=== PATIENT | male | born 1970 | race African-American/Black ===

== ENCOUNTER 2021-04-05 10:47 | Emergency (ER) | payer OTHER ==
[~2021-04-05] VITALS: Ht 175.3 cm; Wt 91.0 kg
--- NOTE | 2021-04-05 11:07 | PHYS DOC ---
Adult General HPI HPI Patient is a 51-year-old male presenting for known Covid positive status and symptoms. Reports he has history of high blood pressure only for which he takes medicine. Is otherwise been at baseline health up until 9 days ago when he started developing URI symptoms. He was tested and found out he was Covid +8 days ago. He has been at home quarantine providing self-care to self but reports over past 48 hours increase worsened dyspnea and feelings of weakness and malaise. Reports ongoing symptoms and ultimately difficulty in breathing prompted him to transport himself to our facility for evaluation. Review of Systems Review of Systems Fourteen body systems of review of systems have been reviewed. See HPI for pertinent positives and negative responses, other barbosa all other systems are negative, non-pertinent or non-contributory Physical Exam Physical Exam Constitutional: Well developed, well nourished, no acute distress, non-toxic appearance. HENT: Normocephalic, atraumatic, bilateral external ears normal, oropharynx moist, no oral exudates, nose normal. Eyes: PERRLA, EOMI, conjunctiva normal, no discharge. Neck: Normal range of motion, no tenderness, supple, no stridor. Cardiovascular: Heart rate tachycardic, sinus rhythm, no murmurs rubs or gallops Lungs & Thorax: Hypoxic on arrival in the 70s on room air with mild increased work of breathing, scant rhonchi present bilaterally otherwise grossly unremarkable to auscultation Abdomen: Bowel sounds normal, soft, no tenderness, no masses, no pulsatile m asses. Nonsurgical abdomen, no peritoneal signs Skin: Warm, dry, no erythema, no rash. Back: No tenderness, no CVA tenderness. Extremities: No tenderness, no cyanosis, no clubbing, ROM intact, no edema. Neurologic: Alert and oriented X 3, grossly normal motor & sensory function, no focal deficits noted. Psychologic: Affect normal, judgement normal, mood normal. Current Patient Data Vital Signs Vital Signs Date Time Temp Pulse Resp B/P (MAP) Pulse Ox O2 Delivery O2 Flow Rate FiO2 04/05/21 11:15 99.8 106 34 129/73 (91) 73 Room Air 04/05/21 11:18 6.0 Vital Signs Date Time Temp Pulse Resp B/P (MAP) Pulse Ox O2 Delivery O2 Flow Rate FiO2 04/05/21 17:17 99.0 82 34 120/72 (88) 96 Nasal Cannula 6.0 Lab Results Laboratory Tests Test 04/05/21 11:05 04/05/21 11:16 White Blood Count 6.6 x10^3/uL Red Blood Count 5.13 x10^6/uL Hemoglobin 14.3 g/dL Hematocrit 44.4 % Mean Corpuscular Volume 87 fL Mean Corpuscular Hemoglobin 28 pg Mean Corpuscular Hemoglobin Concent 32 g/dL Red Cell Distribution Width 13.8 % Platelet Count 207 x10^3/uL Neutrophils (%) (Auto) 75 % Lymphocytes (%) (Auto) 12 % Monocytes (%) (Auto) 12 % Eosinophils (%) (Auto) 0 % Basophils (%) (Auto) 0 % Neutrophils # (Auto) 5.0 x10^3uL Lymphocytes # (Auto) 0.8 x10^3/uL Monocytes # (Auto) 0.8 x10^3/uL Eosinophils # (Auto) 0.0 x10^3/uL Basophils # (Auto) 0.0 x10^3/uL Sodium Level 140 mmol/L Potassium Level 4.0 mmol/L Chloride Level 102 mmol/L Carbon Dioxide Level 31 mmol/L Anion Gap 7 Blood Urea Nitrogen 33 mg/dL Creatinine 2.1 mg/dL Estimated GFR (Cockcroft-Gault) 40.8 BUN/Creatinine Ratio 16 Glucose Level 102 mg/dL Lactic Acid Level 1.2 mmol/L Calcium Level 8.7 mg/dL Total Bilirubin 0.6 mg/dL Aspartate Amino Transf (AST/SGOT) 39 U/L Alanine Aminotransferase (ALT/SGPT) 27 U/L Alkaline Phosphatase 51 U/L Troponin I Quantitative < 0.017 ng/mL Total Protein 7.1 g/dL Albumin 3.4 g/dL Albumin/Globulin Ratio 0.9 Bedside Venous pH 7.43 Bedside Venous pCO2 27 mmHg Bedside Venous pO2 51 mmHg Venous Blood HCO3 35 mmol/L POC Venous O2 Saturation (Hector) 48 % Bedside FiO2 44 Current Medications Medications (Trade) Dose Ordered Sig/Briseida Route PRN Reason Start Time Stop Time Status Last Admin Dose Admin Iohexol (Omnipaque 350 Mg/ml) 100 ml 1X ONCE IV 04/05/21 11:15 04/05/21 11:16 DC 04/05/21 11:25 Aspirin (Aspirin Chewable) 162 mg 1X ONCE PO 04/05/21 11:30 04/05/21 11:32 DC 04/05/21 11:36 Sodium Chloride 1,000 ml @ 1,000 mls/hr 1X ONCE IV 04/05/21 12:00 04/05/21 12:59 DC 04/05/21 12:00 Azithromycin 500 mg/Sodium Chloride 250 ml @ 250 mls/hr 1X ONCE IV 04/05/21 12:30 04/05/21 13:29 DC 04/05/21 12:41 Ceftriaxone Sodium 1 gm/ Sodium Chloride 50 ml @ 100 mls/hr 1X ONCE IV 04/05/21 12:30 04/05/21 12:59 DC 04/05/21 12:40 Dexamethasone Sodium Phosphate (Decadron) 6 mg 1X ONCE IV 04/05/21 12:30 04/05/21 12:31 DC 04/05/21 12:38 Sodium Chloride 250 ml @ As Directed STK-MED ONCE .ROUTE 04/05/21 12:31 04/05/21 12:31 DC Sodium Chloride 50 ml @ As Directed STK-MED ONCE .ROUTE 04/05/21 12:31 04/05/21 12:31 DC Azithromycin (Zithromax) 500 mg STK-MED ONCE IV 04/05/21 12:31 04/05/21 12:31 DC Ceftriaxone Sodium (Rocephin) 1 gm STK-MED ONCE .ROUTE 04/05/21 12:31 04/05/21 12:31 DC EKG EKG EKG ordered and interpreted by myself at 1118 hrs. as sinus rhythm at 98 bpm, unremarkable intervals, no axis deviation, T wave inversion noted in lead aVF otherwise no concerning findings, no STEMI Radiology/Procedures Radiology/Procedures EXAMINATION: XR CHEST 1V CLINICAL HISTORY: Shortness of breath EXAM DATE/TIME: 04/05/2021 11:25 AM COMPARISON: None FINDINGS: Lines, Tubes, and Devices: None. Cardiomediastinal Silhouette: Prominent cardiac silhouette, likely accentuated by AP technique and low lung volumes. Lungs and Pleura: Bilateral hazy and patchy opacities throughout the lungs. No evidence of pleural effusion or pneumothorax. Bones and Soft Tissues: No acute osseous abnormality. IMPRESSION: Hazy and patchy airspace disease throughout bilateral lungs, suspicious for viral or atypical pneumonia. Electronically signed by: Mike Chau DO (04/05/2021 11:34 AM) [facility] ///////////////////////////////// EXAM: CT chest with contrast - pulmonary embolus protocol CLINICAL HISTORY: Shortness of breath, hypoxic, covid positive COMPARISON: None. TECHNIQUE: CT of the chest following the administration of intravenous contrast during the pulmonary arterial phase. Axial, coronal and sagittal reformatted images were generated including MIP images. ---PQRS compliance statement - One or more of the following individualized dose reduction techniques were utilized for this study: 1. Automated exposure control 2. Adjustment of the mA and/or kV according to patient size 3. Use of iterative reconstruction technique--- FINDINGS: CHEST: Diagnostic quality: Suboptimal contrast bolus. Pulmonary emboli: No pulmonary emboli to the level of the segmental branches. More peripheral vessels are not well assessed. Right heart strain: None Pulmonary arteries: Normal in caliber. Heart is not enlarged. No pericardial effusion. No pleural effusion. No pneumothorax. Bilateral parenchymal airspace opacities are seen including solid and groundglass opacities particularly peripherally. Enlarged mediastinal and hilar lymph nodes are seen. No axillary lymphadenopathy. Visualized Upper abdomen: Unremarkable Bones: No aggressive osseous lesion is seen. IMPRESSION: 1. Suboptimal contrast bolus. Within these constraints, no pulmonary embolus to the level of the proximal subsegmental branches. More peripheral vessels are not well assessed. 2. Bilateral parenchymal opacities likely from infectious/inflammatory process including viral pneumonia. Imaging follow-up to resolution is recommended to exclude underlying mass. 3. Mediastinal and hilar lymphadenopathy is likely reactive. Recommend close attention on follow-up. Electronically signed by: Michelet Blank MD (04/05/2021 12:06 PM) [id number] Heart Score C/O Chest Pain: No HEART Score for Chest Pain: HEART Score for Chest Pain Response (Comments) Value History Moderately Suspicious 1 ECG Normal 0 Age >45 - < 65 1 Risk Factors 1 or 2 Risk Factors 1 Troponin < Normal Limit 0 Total 3 Risk Factors: Risk Factors: DM, Current or recent (<one month) smoker, HTN, HLP, family history of CAD, obesity. Risk Scores: Risk Factors: DM, Current or recent (<one month) smoker, HTN, HLP, family history of CAD, obesity. Course & Med Decision Making Course & Med Decision Making Airway patent, breathing unlabored, IV access and vitals obtained concerning for hypoxia 73% on room air, tachypnea and tachycardia HPI, physical exam and comprehensive ER work-up obtained concerning for acute hypoxic respiratory failure secondary to known COVID-19 infection Supplemental oxygen provided, patient continuing to require 6 L oxygen via nasal cannula to maintain saturations greater than 90% IV antibiotics and IV dexamethasone administered Attempts were made to admit patient to [facility] for ICU status but this request was declined by hospitalist As such, efforts were made to place in the [place] region but this was difficult due to overall COVID-19 pandemic and capacity issues citywide Ultimately, availability was made at local [facility] and [place]. Hospitalist was contacted and case reviewed and he accepted patient under his care. Patient updated on entirety of ER work-up and need for hospitalization and was amenable for transfer. All questions and concerns addressed prior to transfer via EMS Dragon Disclaimer Dragon Disclaimer This electronic medical record was generated, in whole or in part, using a voice recognition dictation system. Departure Departure: Impression: Primary Impression: COVID-19 Additional Impression: Acute respiratory failure with hypoxia Disposition: [address] [facility] ([facility]) Admitting Physician: Other (DR GUZMAN) Condition: STABLE Referrals: PCP,UNKNOWN (PCP) Problem Qualifiers DORCAS MENDOZA DO Apr 05, 2021 11:07
[2021-04-05] MEDS ORDERED: IOHEXOL 350 MG/ML 100 ML VIAL. IV ONE (11:15)
[2021-04-05 11:26] LABS: BASO % 0 % (0-3); EOS % 0 % (0-3); HEMATOCRIT 44.4 % (39.0-53.0); HEMOGLOBIN 14.3 g/dL (13.0-17.5); LYMPH # 0.8 x10^3/uL (1.0-4.8); LYMPH % 12 % (24-48); MEAN CORPUSCULAR HEMOGLOBIN 28 pg (25-35); MEAN CORPUSCULAR HGB CONC 32 g/dL (31-37); MEAN CORPUSCULAR VOLUME 87 fL (79-100); MONO # 0.8 x10^3/uL (0.0-1.1); MONO % 12 % (0-9); NEUT % 75 % (31-73); PLATELET COUNT 207 x10^3/uL (140-400); RED BLOOD COUNT 5.13 x10^6/uL (4.30-5.70); RED CELL DISTRIBUTION WIDTH 13.8 % (11.5-14.5); WHITE BLOOD COUNT 6.6 x10^3/uL (4.0-11.0)
[2021-04-05] MEDS ORDERED: ASPIRIN CHEWABLE 81 MG TABLET. PO ONE (11:30)
[2021-04-05 11:34] LABS: CALCIUM 8.7 mg/dL (8.5-10.1); CREATININE 2.1 mg/dL (0.7-1.3); GFR 40.8
--- NOTE | 2021-04-05 11:36 | RAD ---
EXAMINATION: XR CHEST 1V CLINICAL HISTORY: Shortness of breath EXAM DATE/TIME: 04/05/2021 11:25 AM COMPARISON: None FINDINGS: Lines, Tubes, and Devices: None. Cardiomediastinal Silhouette: Prominent cardiac silhouette, likely accentuated by AP technique and lo w lung volumes. Lungs and Pleura: Bilateral hazy and patchy opacities throughout the lungs. No evidence of pleural ef fusion or pneumothorax. Bones and Soft Tissues: No acute osseous abnormality. IMPRESSION: Hazy and patchy airspace disease throughout bilateral lungs, suspicious for viral or atypical pneumon ia. Electronically signed by: Mike Chau DO (04/05/2021 11:34 AM) [facility]
[2021-04-05 11:40] LABS: ALBUMIN 3.4 g/dL (3.4-5.0); ALBUMIN/GLOBULIN RATIO 0.9 (1.0-1.7); TOTAL BILIRUBIN 0.6 mg/dL (0.2-1.0); TOTAL PROTEIN 7.1 g/dL (6.4-8.2)
[2021-04-05] MEDS ORDERED: IV NORMAL SALINE 1,000ML 1,000 ML IV ONE (12:00)
--- NOTE | 2021-04-05 12:08 | RAD ---
EXAM: CT chest with contrast - pulmonary embolus protocol CLINICAL HISTORY: Shortness of breath, hypoxic, covid positive COMPARISON: None. TECHNIQUE: CT of the chest following the administration of intravenous contrast during the pulmonary arterial phase. Axial, coronal and sagittal reformatted images were generated including MIP images. ---PQRS compliance statement - One or more of the following individualized dose reduction techniques were utilized for this study: 1. Automated exposure control 2. Adjustment of the mA and/or kV according to patient size 3. Use of iterative reconstruction technique--- FINDINGS: CHEST: Diagnostic quality: Suboptimal contrast bolus. Pulmonary emboli: No pulmonary emboli to the level of the segmental branches. More peripheral vessel s are not well assessed. Right heart strain: None Pulmonary arteries: Normal in caliber. Heart is not enlarged. No pericardial effusion. No pleural effusion. No pneumothorax. Bilateral parenchymal airspace opacities are seen including solid and groundglass opacities particula rly peripherally. Enlarged mediastinal and hilar lymph nodes are seen. No axillary lymphadenopathy. Visualized Upper abdomen: Unremarkable Bones: No aggressive osseous lesion is seen. IMPRESSION: 1. Suboptimal contrast bolus. Within these constraints, no pulmonary embolus to the level of the pro ximal subsegmental branches. More peripheral vessels are not well assessed. 2. Bilateral parenchymal opacities likely from infectious/inflammatory process including viral pneum onia. Imaging follow-up to resolution is recommended to exclude underlying mass. 3. Mediastinal and hilar lymphadenopathy is likely reactive. Recommend close attention on follow-up. Electronically signed by: Michelet Blank MD (04/05/2021 12:06 PM) [id number]
[2021-04-05] MEDS ORDERED: DEXAMETHASONE SOD PHOS 10 MG/ML VIAL. IV ONE (12:30)
[2021-04-05] MEDS ORDERED: AZITHROMYCIN 500 MG in IV NORMAL SALINE 250ML 250 ML IV ONE (12:30)
[2021-04-05] MEDS ORDERED: IV NORMAL SALINE 250ML 250 ML ONE (12:31)
[2021-04-05] MEDS ORDERED: AZITHROMYCIN 500 MG VIAL. IV ONE (12:31)
[2021-04-05] MEDS ORDERED: IV NORMAL SALINE 50ML 50 ML ONE (12:31)
[2021-04-05] MEDS ORDERED: cefTRIAXone SODIUM 1 GM VIAL ONE (12:31)
[2021-04-05 17:17] VITALS: BP 120/72
--- NOTE | 2021-04-06 06:29 | EKG ---
[address] [address] Test Date: 2021-04-05 Test Time: 11:06:39 Pat Name: KERWIN SMITH Department: Room: Gender: M Field Operations Coordinator: : 1970 Requested By: DORCAS MENDOZA Order Number: [id number] Reading MD: Jong Mancia MD Measurements Intervals Pillow Rate: 98 P: 31 LA: 138 QRS: 7 QRSD: 82 T: -17 QT: 332 QTc: 426 Interpretive Statements SINUS RHYTHM CONSIDER INFERIOR INFARCT Electronically Signed On 04-08-2021 11:38:35 CDT by Jong Mancia MD
== END 2021-04-05 17:30 | disposition short-term general hospital (02) ==
LOC: ER 10:47
DX: U07.1 COVID-19 (principal); J96.01 Acute respiratory failure with hypoxia
CPT/HCPCS: 36415; 71045; 71275; 80053; 82803; 83605; 84484; 85025; 87040; 93005; 96361; 96365; 96368; 99285; J0456; J0696; J1100; J7030; J7050; Q9967

== ENCOUNTER → 2021-04-23 | Outpatient (CLI) | payer OTHER ==
[2021-04-05 17:17] VITALS: BP 120/72
--- NOTE | 2021-04-23 16:29 | RAD ---
EXAMINATION: US DPLX VENOUS EXTREMITY LOWER LT INDICATION: Left lower extremity pain, evaluate for deep venous thrombosis. COMPARISONS: None TECHNIQUE: Grayscale, color and spectral Doppler evaluation of the Left lower extremity deep venous s ystem(s) was performed. FINDINGS: Left common femoral, femoral and popliteal veins are normally compressible and demonstrate normally d irected and appropriately phasic flow with augmentation. Normal flow is present within the saphenofemoral junctions and deep femoral veins in the proximal thi gh and the posterior tibial and peroneal veins in the proximal calf. IMPRESSION: No left lower extremity deep venous thrombosis. Electronically signed by: Jose Kennedy MD (04/23/2021 4:27 PM) [facility]
== END ==
LOC: US 15:54
PROVIDERS: ATTEND Specialist
DX: M79.605 Pain in left leg (principal)
CPT/HCPCS: 93971

== ENCOUNTER → 2021-05-09 | Outpatient (CLI) | payer OTHER ==
--- NOTE | 2021-05-09 14:47 | RAD ---
EXAM: Chest, 2 views. HISTORY: Covid 19. COMPARISON: 04/05/2020 FINDINGS: 2 views of the chest are obtained. There has been slight interval decrease in multifocal in terstitial infiltrate. There is no pleural effusion or pneumothorax. The heart is normal in size. IMPRESSION: Slight interval decrease in multifocal pneumonia. Electronically signed by: Lubna Suarez MD (05/09/2021 2:45 PM) [id number]
== END ==
LOC: RAD 14:17
PROVIDERS: ATTEND Specialist
DX: U07.1 COVID-19 (principal); J18.9 Pneumonia, unspecified organism; R91.8 Other nonspecific abnormal finding of lung field
CPT/HCPCS: 71046